=== PATIENT | female | born 1950 | race Caucasian/White ===

== ENCOUNTER 2017-05-06 00:47 | Emergency (ER) | payer MEDICARE ==
[~2017-05-06] VITALS: Ht 157.5 cm; Wt 113.4 kg
[~2017-05-06 00:47] MED LIST: CHOL500016 PO; ESCI20TA PO; ESOM40CA PO; GABA300C10 PO; HYDR-3101 PO; HYDR12.53 PO; HYDR200T5 PO; LEVO25TA4 PO; LORA1TAB PO; MAGN71.5 PO; MESA1.2T PO; MESA800T2 PO; METH-3 PO; METO-236 PO; NORT25CA PO; POTA10CA PO; TORS20TA2 PO; ZALE10CA PO; [UNRECOGNIZED DRUG - CODE] PO; [UNRECOGNIZED DRUG - CODE] PO
[2017-05-06] MEDS ORDERED: ZOFRAN ODT ONE (00:56)
--- NOTE | 2017-05-06 01:00 | NUR ---
EMESIS HAS STOPPED. PT REPEATING "IF I COULD JUST GO TO THE BATHROOM", BSC NEXT TO STRETCHER.
[2017-05-06] MEDS ORDERED: ZOFRAN ODT SL STA (01:02)
--- NOTE | 2017-05-06 01:03 | NUR ---
PT STATED "A BIG DOSE OF PHENERGAN WOULD HELP ME MORE" STATES SHE HAS A RIDE HOME.
[2017-05-06] MEDS ORDERED: NS 1000ML 1,000 ML IV STA (01:16)
--- NOTE | 2017-05-06 01:21 | ER.PDOC ---
General Chief Complaint: Abdomen Pain Stated Complaint: CONSTIPATION, N/V Time seen by MD: 01:19 Source: patient Exam Limitations: no limitations History of Present Illness Initial Comments Nausea/vomiting since last evening and constipation for 2 days Severity/Quality: moderate Associated Symptoms (vomiting): mild vomiting Allergies: Coded Allergies: Penicillins (Verified Allergy, Unknown, 05/06/17) egg (Verified Allergy, Unknown, 05/06/17) latex (Verified Allergy, Unknown, BURNING, ITCHING, 05/06/17) tomato (Verified Allergy, Unknown, 05/06/17) Uncoded Allergies: SULFA (Allergy, Unknown, 11/06/14) Home Meds Reported Medications Mesalamine (LIALDA) 1.2 Gm Tablet.dr, 2 TAB PO DAILY, #180 TAB 3 Refills 09/19/16 Torsemide (TORSEMIDE) 20 Mg Tablet, 1 TAB PO DAILY, #90 TAB 3 Refills 09/19/16 Calcium Citrate/Vitamin D3 (CITRACAL + D MAXIMUM CAPLET) 1 Each Tablet, 1 EACH PO BID, TABLET 11/09/14 Cholecalciferol (Vitamin D3) (VITAMIN D3) 5,000 Unit Tablet, 1 TAB PO DAILY, # 30 TAB 11/09/14 Magnesium Chloride (SLOW-MAG) 71.5 Mg Tablet.dr, 71.5 MG PO BID 11/09/14 Esomeprazole Magnesium (NEXIUM) 40 Mg Capsule.dr, 1 CAP PO DAILY, #30 CAP 5 Refills 11/09/14 Levothyroxine Sodium (LEVOTHYROXINE SODIUM) 25 Mcg Tablet, 1 TAB PO DAILY, #30 TAB 5 Refills 11/09/14 Escitalopram Oxalate (ESCITALOPRAM OXALATE) 20 Mg Tablet, 20 MG PO DAILY, TABLET 11/09/14 Lorazepam (LORAZEPAM) 1 Mg Tablet, 1 TAB PO TID, #90 TAB 11/09/14 Potassium Chloride (POTASSIUM CHLORIDE) 10 Meq Capsule.er, 10 MEQ PO BID 11/09/14 Nortriptyline Hcl (NORTRIPTYLINE HCL) 25 Mg Capsule, 50 MG PO DAILY, CAPSULE 11/09/14 Irbesartan (AVAPRO) 150 Mg Tablet, 75 MG PO DAILY, TABLET 11/09/14 Zaleplon (ZALEPLON) 10 Mg Capsule, 1-2 MG PO HS, CAPSULE 11/09/14 Metoprolol Succinate (METOPROLOL SUCCINATE) 25 Mg Tab.er.24h, 1 TAB PO DAILY, # 30 TAB 5 Refills 11/09/14 Hydroxychloroquine Sulfate (HYDROXYCHLOROQUINE SULFATE) 200 Mg Tablet, 200 MG PO DAILY, TABLET 11/09/14 Hydrocodone Bit/Acetaminophen (NORCO 7.5-325) 1 Each Tablet, 1 TAB PO BID, #120 TAB 11/09/14 Methocarbamol (ROBAXIN) 500 Mg Tablet, 1 TAB PO BID, #60 TAB 11/09/14 Gabapentin (GABAPENTIN) 300 Mg Capsule, 1 CAP PO BID, #90 CAP 5 Refills 11/09/14 Vital Signs First Vital Signs Date Time Temp Pulse Resp B/P (MAP) Pulse Ox O2 Delivery O2 Flow Rate FiO2 05/06/17 00:49 97.9 91 16 94 05/06/17 00:57 132/95 (107) Last Vital Signs Date Time Temp Pulse Resp B/P (MAP) Pulse Ox O2 Delivery O2 Flow Rate FiO2 05/06/17 02:25 82 16 144/62 (89) 94 05/06/17 00:57 97.9 Past Medical History Medical History: hypertension, other (Lymphoma) Surgical History: appendectomy, cholecystectomy, hysterectomy Social History Smoking: non-smoker Alcohol Use: none Drug Use: none Constitutional: no symptoms reported Respiratory: no symptoms reported Cardiovascular: no symptoms reported Gastrointestinal: see HPI Genitourinary: no symptoms reported All Other Systems: Reviewed and Negative Physical Exam General Appearance: No Apparent Distress, WD/WN Neck: Non-Tender, Full Range of Motion, Supple, Normal Inspection Respiratory: chest non-tender, lungs clear, normal breath sounds, no respiratory distress, no accessory muscle use Cardiovascular: Normal Peripheral Pulses, Regular Rate, Rhythm, No Edema, No Gallop, No JVD, No Murmur Gastrointestinal: No Organomegaly, No Pulsatile Mass, Hypoactive bowel sounds Back: Normal Inspection, No CVA Tenderness, No Vertebral Tenderness Extremities: Normal Range of Motion, Non-Tender, Normal Inspection, No Pedal Edema, No Calf Tenderness, Normal Capillary Refill, Pelvis Stable Neurologic/Psychiatric: cardiac cath lab radiology technologist II-XII NML as Tested, No Motor/Sensory Deficits, Alert, Normal Mood/Affect, Oriented x 3 Results/Orders Results/Orders Laboratory Tests Test 05/06/17 01:25 White Blood Count 4.7 10^3/uL (4.5-11.0) Red Blood Count 4.99 10^6/uL (4.00-5.20) Hemoglobin 15.2 g/dL (12.0-15.0) Hematocrit 44.3 % (36.0-46.0) Mean Corpuscular Volume 88.8 fL (78-100) Mean Corpuscular Hemoglobin 30.5 pg (26-34) Mean Corpuscular Hemoglobin Concent 34.3 g/dL (33-37) Red Cell Distribution Width 13.5 % (11.5-14.5) Platelet Count 98 10^3/uL (150-400) Mean Platelet Volume 10.5 fL (7.8-11.0) Neutrophils (%) (Auto) 79.9 % (41.0-85.0) Lymphocytes (%) (Auto) 8.8 % (24.0-44.0) Monocytes (%) (Auto) 8.6 % (5.0-12.0) Neutrophils # (Auto) 3.7 10^3/uL (1.8-7.7) Lymphocytes # (Auto) 0.4 10^3/uL (1.0-4.8) Monocytes # (Auto) 0.4 10^3/uL (0.3-0.8) Eosinophils % 2.1 % (0.0-5.0) Basophils % 0.6 % (0.0-0.2) Basophils # 0.0 10^3/uL (0.0-0.1) Eosinophil Count 0.1 10^3/uL (0.0-0.2) Prothrombin Time 11.6 SEC (9.8-11.9) Prothrombin Time INR (Non-Therap) 1.1 Activated Partial Thromboplast Time 23.4 SEC (24.67-30.72) Sodium Level 145 mmol/L (132-145) Potassium Level 3.5 mmol/L (3.6-5.2) Chloride Level 106.0 mmol/L (96-109) Carbon Dioxide Level 27.8 mmol/L (20.0-32) Anion Gap 14.7 Blood Urea Nitrogen 13 mg/dL (7-18) Creatinine 1.35 mg/dL (0.59-1.40) Estimated GFR () 47.5 (>/=60) BUN/Creatinine Ratio 9.0 Glucose Level 109 mg/dL (70-110) Calcium Level 9.5 mg/dL (8.4-10.5) Total Bilirubin 0.4 mg/dL (0.2-1.0) Aspartate Amino Transf (AST/SGOT) 17 U/L (0-35) Alanine Aminotransferase (ALT/SGPT) 19 U/L (12-78) Alkaline Phosphatase 78 U/L (50-136) Total Protein 7.3 g/dL (6.4-8.2) Albumin 3.6 g/dL (3.4-5.0) Globulin 3.7 Lipase 107 U/L (114-286) Administered Medications Medications (Trade) Dose Ordered Sig/Annamaria Route PRN Reason Start Time Stop Time Status Last Admin Dose Admin Ondansetron HCl (Zofran Odt) 4 mg STAT STAT SL 05/06/17 01:02 05/06/17 01:03 DC 05/06/17 01:03 Sodium Chloride 1,000 ml @ 1,200 mls/hr Q50M STAT IV 05/06/17 01:16 05/06/17 02:05 DC 05/06/17 02:00 Progress Progress Patient feeling better, ready to go home. EKG/XRAY/CT/US EKG: NSR CT Comments: See full report of CT abdomen/pelvis Consult/PCP Time Consult/PCP Called: 02:55 Consult/PCP: Dr. Vasquez Reason/Comments: N/V, F/U in office. Departure Time of Disposition: 02:56 Disposition: 01 HOME, SELF-CARE Impression: Primary Impression: Gastroenteritis Condition: Improved Referrals: DEA VASQUEZ MD (PCP) PRIMARY CARE PROVIDER Additional Instructions: Zofran ODT Start feeding with clear liquids and advance diet as tolerated F/U with your PCP in 2-3 days Duration or Time Spent with Pa: 40 mins LILLY KANG MD May 06, 2017 01:20
--- NOTE | 2017-05-06 01:31 | NUR ---
PT TO CT VIA STRETCHER
[2017-05-06 01:32] LABS: BASOPHIL % 0.6 % (0.0-0.2); EOSINOPHIL # 0.1 10^3/uL (0.0-0.2); EOSINOPHIL % 2.1 % (0.0-5.0); HEMOGLOBIN 15.2 g/dL (12.0-15.0); LYMPHOCYTES # 0.4 10^3/uL (1.0-4.8); LYMPHOCYTES % 8.8 % (24.0-44.0); MEAN CELL HGB 30.5 pg (26-34); MEAN CELL HGB CONCENTRATION 34.3 g/dL (33-37); MEAN CORP VOLUME 88.8 fL (78-100); MEAN PLATELET VOLUME 10.5 fL (7.8-11.0); MONOCYTES # 0.4 10^3/uL (0.3-0.8); MONOCYTES % 8.6 % (5.0-12.0); NEUTROPHIL # 3.7 10^3/uL (1.8-7.7); NEUTROPHILS % 79.9 % (41.0-85.0); PLATELET COUNT 98 10^3/uL (150-400); RED CELL DISTRIBUTION WIDTH 13.5 % (11.5-14.5); WHITE BLOOD CELL 4.7 10^3/uL (4.5-11.0)
--- NOTE | 2017-05-06 01:40 | NUR ---
PT RETURNED TO FROM CT
[2017-05-06 01:46] LABS: CALCIUM 9.5 mg/dL (8.4-10.5); CARBON DIOXIDE 27.8 mmol/L (20.0-32)
[2017-05-06] MEDS ORDERED: NS 1000ML 1,000 ML ONE (01:56)
--- NOTE | 2017-05-06 02:20 | NUR ---
PT RESTING, STATES SHE IS FEELING BETTER, NO EMESIS, STATES SHE IS STILL COLD, REQUESTED AND PROVIDED WITH A WARM BLANKET.
--- NOTE | 2017-05-06 02:26 | DIREP ---
PROCEDURE:CT ABD/PELVIS W/O TECHNIQUE:Cross-sectional imaging through the abdomen and pelvis was performed without contrast. COMPARISON:None. INDICATIONS:Vomiting, constipation FINDINGS: LOWER CHEST:Is bibasilar atelectasis and pleural thickening. LIVER:There is fatty infiltration of the liver. The liver is enlarged with the right hepatic lobe measuring 20 cm in craniocaudal direction. BILIARY:Gallbladder is not seen. PANCREAS:Normal. SPLEEN:The spleen is top-normal in size. URINARY TRACT:Normal. ADRENALS:Normal. AORTA/VASCULAR:Normal. RETROPERITONEUM:There is bulky retroperitoneal lymphadenopathy, the largest lymph node measuring 1.9 x 2.5 cm. BOWEL/MESENTERY:There is no bowel wall thickening or obstruction. The appendix is normal. Dense stool burden is seen in the rectum. ABDOMINAL WALL:Normal. PELVIS:Uterus is surgically absent. Prominent bilateral inguinal lymph nodes are seen. BONES:Degenerative changes are seen the spine. OTHER:There is haziness of the mesenteric fat with prominent lymph nodes seen throughout the mesentery especially centrally. CONCLUSION: 1. "Yumi mesentery" or stranding of the central mesentery with prominent mesenteric lymph nodes as well as retroperitoneal and inguinal lymphadenopathy. Findings are nonspecific and differential includes mesenteric panniculitis, idiopathic , reactive such as related to inflammatory bowel disease, or possibly lymphoma. Clinical correlation and follow-up to resolution is recommended. 2. Hepatosplenomegaly and fatty liver. Other findings as above. Dictated by: De Aparicio MD on 05/06/2017 at 02:16 AM
--- NOTE | 2017-05-06 03:07 | NUR ---
TRANSPORTATION HOME DISCUSSED WITH PT PT REQUESTED NURSING STAFF TO CALL HER FRIEND FOR RIDE HOME FRIEND CONTACTED BY PHONE AND SAID SHE WOULD COME GET PT PT UPDATED.
--- NOTE | 2017-05-06 03:23 | NUR ---
DISCHARGE DISCHARGE INSTRUCTIONS AND PRESCRIPTION MEDICATION DISCUSSED WITH PT. PT VERBALIZED UNDERSTANDING OF INSTRUCTIONS AND PRESCRIPTIONS. IV DC'D WITH TIP INTACT. PT ENCOURAGED TO RETURN IF ANY CONCERNS.
[2017-05-06 03:26] VITALS: BP 137/66
--- NOTE | 2017-05-06 03:29 | NUR ---
UPDATE PT AMBULATED TO AND FROM BATHROOM WITHOUT DIFFICULTY. PT CURRENTLY WAITING IN ROOM FOR RIDE.
--- NOTE | 2017-05-06 03:31 | NUR ---
UPDATE PT AMBULATED TO BATHROOM AT THIS TIME.
--- NOTE | 2017-05-06 03:36 | NUR ---
TRANSPORT HOME PT'S FRIEND IN ROOM TO TRANSPORT PT HOME AT THIS TIME.
--- NOTE | 2017-05-06 06:59 | PCM.EKG ---
[facility] Test Date: 2017-05-06 Test Time: 00:57:36 Pat Name: GUERDA ENGLISH Department: Patient ID: [facility]-[id number] Room: Gender: F [employer] Manager: CHARY : 1950 Requested By: LILLY KANG Order Number: [id number] Reading MD: Lilly KANG Measurements Intervals Bruce Rate: 97 P: 78 PA: 200 QRS: -33 QRSD: 146 T: 106 QT: 386 QTc: 490 Interpretive Statements Normal sinus rhythm Left axis deviation Left bundle branch block Abnormal ECG No previous ECG available for comparison Electronically Signed On 05-06-2017 8:03:10 ARCHITECT INTERN by Lilly KANG Please click the below link to view image of tracing.
== END 2017-05-06 03:20 | disposition home or self-care (01) ==
LOC: ER 00:47 → EDBD 00:47 → ER 03:20
DX: K52.9 Noninfective gastroenteritis and colitis, unspecified (principal); I10 Essential (primary) hypertension; R79.1 Abnormal coagulation profile; Z88.0 Allergy status to penicillin; Z90.49 Acquired absence of other specified parts of digestive tract; Z90.710 Acquired absence of both cervix and uterus; Z79.899 Other long term (current) drug therapy; Z91.012 Allergy to eggs; Z91.040 Latex allergy status; Z91.018 Allergy to other foods
CPT/HCPCS: 36415; 74176; 80053; 83690; 85025; 85610; 93005; 96360; 99285; J7030; Q0162